=== PATIENT | female | born 1990 | race Caucasian/White ===

== ENCOUNTER 2017-10-24 11:33 | Outpatient (CLI) | END 2017-10-24 14:22 | disposition home or self-care (01) ==

== ENCOUNTER 2017-10-27 14:54 | Outpatient (CLI) | END 2017-10-27 15:40 | disposition home or self-care (01) ==

== ENCOUNTER 2017-11-24 17:45 | Inpatient (IN) | END 2017-11-28 15:37 | disposition home or self-care (01) | DRG 806 ==